=== PATIENT | male | born 1990 | race Caucasian/White ===

== ENCOUNTER 2017-07-18 08:24 | Emergency (ER) | payer OTHER ==
[~2017-07-18] VITALS: Ht 177.8 cm; Wt 85.0 kg
[~2017-07-18 08:24] MED LIST: ETOMIDATE 20 MG/10 ML ONE; MIDAZOLAM 1 MG/ML, 5ML ONE; PROPOFOL 10 MG/ML, 100ML IV ONE; PROPOFOL 10 MG/ML, 20ML ONE; SUCCINYLCHOLINE 20 MG/ML, 10ML ONE; VECURONIUM 10 MG ONE
[2017-07-18] MEDS ORDERED: PROPOFOL 10 MG/ML, 20ML ONE (09:42)
[2017-07-18] MEDS ORDERED: BENZOCAINE AEROSOL SPRAY 20%, 60ML ONE (09:51)
[2017-07-18] MEDS ORDERED: KETAMINE 50 MG/ML, 10ML ONE (10:16)
[2017-07-18] MEDS ORDERED: LABETALOL 5MG/ML, 20ML ONE (10:54)
[2017-07-18] MEDS ORDERED: ETOMIDATE 20 MG/10 ML IV ONE (11:00)
[2017-07-18] MEDS ORDERED: PROPOFOL 10 MG/ML, 20ML IVP ONE (11:00)
[2017-07-18] MEDS ORDERED: SUCCINYLCHOLINE 20 MG/ML, 10ML IVPush ONE (11:00)
[2017-07-18] MEDS ORDERED: KETAMINE 100 MG/ML, 5ML IV STA (11:01)
[2017-07-18] MEDS ORDERED: VECURONIUM 10 MG IVPush ONE ×2 (11:30→12:00)
[2017-07-18] MEDS ORDERED: PROPOFOL 100 ML IV PRN (11:30)
[2017-07-18] MEDS ORDERED: VECURONIUM 10 MG ONE (11:36)
[2017-07-18] MEDS ORDERED: ENOXAPARIN 40 MG/0.4 ML SQ SCH (12:00)
[2017-07-18] MEDS ORDERED: LIDOCAINE-MPF 1%, 2ML ENDO PRN (12:00)
[2017-07-18] MEDS ORDERED: MIDAZOLAM 1 MG/ML, 2ML IVPush ONE ×2 (12:00→13:00)
[2017-07-18] MEDS ORDERED: FAMOTIDINE 20 MG/2 ML IV SCH ×2 (12:00→21:00)
[2017-07-18] MEDS ORDERED: LIDOCAINE 1%, 50ML ONE (12:00)
[2017-07-18] MEDS ORDERED: LIDOCAINE GEL 2%, 5ML ONE (12:00)
[2017-07-18] MEDS ORDERED: PHARMACY MAY ADJ FOR RENAL FX MC SCH (12:00)
[2017-07-18] MEDS ORDERED: MIDAZOLAM HCL 25 MG in SODIUM CHLORIDE 0.9% 245 ML IV ONE (12:49)
[2017-07-18] MEDS ORDERED: ENOXAPARIN 40 MG/0.4 ML ONE (12:54)
[2017-07-18] MEDS ORDERED: MORPHINE SULFATE 4 MG/ML, 1ML ONE (13:33)
[2017-07-18] MEDS ORDERED: CEFTRIAXONE PMX 1GM/50ML 50 ML IVPB ONE (14:00)
[2017-07-18] MEDS ORDERED: MORPHINE SULFATE 4 MG/ML, 1ML IV ONE (14:00)
[2017-07-18] MEDS ORDERED: CEFTRIAXONE PMX 1GM/50ML 50 ML ONE (14:02)
[2017-07-18] MEDS ORDERED: AMPICILLIN/SULBACTAM 3 GM IM ONE (15:00)
[2017-07-18] MEDS ORDERED: LIDOCAINE-MPF 2% ,5ML ONE (15:14)
[2017-07-18 16:32] VITALS: BP 122/68
[2017-07-18] MEDS ORDERED: ERYTHROMYCIN OPHTH 0.5%, 1GM LEFTEYE ONE (18:00)
== END 2017-07-18 16:35 | disposition home or self-care (01) ==
LOC: ED 09:03
DX: J69.0 Pneumonitis due to inhalation of food and vomit (principal)
CPT/HCPCS: 31500; 31635; 36415; 70360; 71045; 84478; 96365; 96375; 96376; 99291; J0330; J0696; J2250; J2704; J3490; 94002

== ENCOUNTER → 2017-07-20 | Outpatient (CLI) | payer SELFPAY | LOC: RAD 12:55 | PROVIDERS: ATTEND Emergency Medicine | DX: R07.9 Chest pain, unspecified (principal) | CPT/HCPCS: 71046 ==